=== PATIENT | male | born 1995 | race African-American/Black ===

== ENCOUNTER 2020-06-20 15:48 | Emergency (ER) | payer OTHER ==
[~2020-06-20] VITALS: Ht 195.6 cm; Wt 99.8 kg
[~2020-06-20 15:48] MED LIST: CIPRO500 MG PO; INTESTINEX680 M1 PO
== END 2020-06-20 20:52 | disposition home or self-care (01) ==
LOC: ER 15:48
DX: K63.89 Other specified diseases of intestine (principal); R10.32 Left lower quadrant pain